=== PATIENT | male | born 1975 | race Caucasian/White ===

== ENCOUNTER 2023-01-26 15:47 | Emergency (ER) | payer BC, SELFPAY ==
[2023-01-26 15:54] VITALS: BP 157/96; PULSE 92; RESP 18; TEMP 36.8; O2SAT 97
--- NOTE | 2023-01-26 16:15 | ED.GENADULT ---
HPI - General Adult General Chief complaint: Allergic Reaction Stated complaint: poison hola Time Seen by Provider: 01/26/23 16:10 Source: patient, RN notes reviewed and old records reviewed Mode of arrival: ambulatory Limitations: no limitations History of Present Illness HPI narrative: 47 year old male who presents to [facility] care with complaints of poison rash to his arms, right side of his face for the past month. Patient reports that he has taken a Prednisone taper without relief of symptoms, wants a shot today of steroid. Patient states that he contacted [facility] after mowing grass, rash is itchy and irritating.Patient does have history of asthma denies any shortness of breath or any difficulty with swallowing. MD complaint: poison hola rash Onset (ago): month(s) (1) Severity scale (1-10): 8 Quality: other (itchy and irritating) Treatments prior to arrival: other (topical medication and took prednisone taper) Related Data Home Medications Medication Instructions Recorded Confirmed albuterol sulfate 90 mcg/actuation 2 puff inhalation Q4-6H PRN 01/26/23 01/26/23 aerosol inhaler Shortness Of Breath Or Wheezing fluticasone furoate 200 1 inh inhalation BID 01/26/23 01/26/23 mcg-vilanterol 25 mcg/dose inhalation powder (Breo Ellipta) olmesartan 40 mg-amlodipine 5 1 tablet PO DAILY 01/26/23 01/26/23 mg-hydrochlorothiazide 12.5 mg tablet omeprazole 40 mg capsule,delayed 40 mg PO DAILY 01/26/23 01/26/23 release prednisone 10 mg tablet mg 01/27/23 prednisone 10 mg tablet mg 01/27/23 Allergies Allergy/AdvReac Type Severity Reaction Status Date / Time No Known Allergies Allergy Verified 01/26/23 16:04 Review of Systems Review of Systems: CONSTITUTIONAL: Denies fever, chills, or sweats. CARDIOVASCULAR: Denies chest pain, palpitations, or edema. RESPIRATORY: Denies cough or dyspnea. SKIN: Reports red raised itchy rash to his right side of face and neck and to his arms MUSCULOSKELETAL: Denies joint pain or myalgia. NEUROLOGIC: Denies headache, numbness, or weakness. All systems reviewed & are unremarkable except as noted in HPI and below PMFSH Past Medical History Medical History (Updated 01/27/23 @ 21:53 by Sonal Damon NP) Asthma GERD (gastroesophageal reflux disease) Hypertension Surgical History Surgical History (Updated 01/27/23 @ 21:54 by Sonal Damon NP) History of tonsillectomy and adenoidectomy Social History Social History (Updated 01/27/23 @ 21:55 by Sonal Damon NP) Smoking status: Never smoker Alcohol intake: current Alcohol use details: social Substance use type: does not use Living arrangements: with family Gender identity (if verbalized by the patient): Male Comments At time of signature, agree with nursing past medical, surgical, social and family history. There is no relevant family history pertinent to the presenting complaint Exam Narrative: GENERAL: Well-appearing, well-nourished, and in no acute distress. HEAD: Normocephalic, atraumatic. EYES: PERRLA, conjunctivae clear, and EOMI. ENT: Mucous membranes moist. Oropharynx without edema, erythema or lesions. NECK: Supple. No lymphadenopathy CHEST: Clear to auscultation. No respiratory distress.no cough noted SAO2 97% on room air HEART: Regular rate and rhythm. SKIN: Warm, dry.? Patches of red raised rash to right side of face and neck and to arms is itchy and irritating. NEURO:? Alert and oriented x3. PSYCH: Normal mood and affect Course Course Emergency Course: Patient is aware of diagnosis, understands and agrees to treatment plan.? Anticipatory guidance given.? Patient agrees to follow-up as directed and is aware of reasons to seek care at the emergency department. Portions of this record may have been created with voice recognition software Level of Care: Express Care Visit Vital Signs Vital signs: Vital Signs Temperature 36.8 C
[2023-01-26] MEDS: methylPREDNISolone ACETATE 80 MG/ML VIAL IM (16:28)
== END 2023-01-26 16:45 | disposition home or self-care (01) ==
PROVIDERS: Emergency Provider Registered Nurse
DX: L23.7 Allergic contact dermatitis due to plants, except food (principal); J45.909 Unspecified asthma, uncomplicated; K21.9 Gastro-esophageal reflux disease without esophagitis; I10 Essential (primary) hypertension
CPT/HCPCS: 96372; 99213; G0463; J1040

== ENCOUNTER 2023-09-11 16:57 | Emergency (ER) | payer BC, SELFPAY ==
[2023-09-11 17:06] VITALS: BP 139/98; PULSE 111; RESP 20; TEMP 37.4; O2SAT 96
--- NOTE | 2023-09-11 18:17 | ED.SKABFB ---
HPI - Skin/Abscess/Foreign Bdy General Chief complaint: Skin/Abscess/Foreign Body Stated complaint: Left arm bite Time Seen by Provider: 09/11/23 18:01 Source: patient, RN notes reviewed and old records reviewed Mode of arrival: ambulatory Limitations: no limitations History of Present Illness HPI narrative: 48-year-old male to Express Care for complaint of rash to left shoulder has become increasingly, swollen and itchy. patient also endorsing a rash scattered across right upper extremity and mid upper back. Patient concerned for poison hola. Patient reports having a virtual medical appointment today and receiving a prescription for cephalexin. Patient states that his significant other wanted him to be evaluated in person. Patient denies chills, fever, nausea, pain, body aches, allergies, pertinent medical history. Patient hypertensive and tachycardic in triage. Respirations even and nonlabored an exam room. Patient able to speak in complete sentences without difficulty. Patient able to tolerate fluids by mouth. No acute distress. Related Data Home Medications Medication Instructions Recorded Confirmed albuterol sulfate 90 mcg/actuation 2 puff inhalation Q4-6H PRN 01/26/23 09/11/23 aerosol inhaler Shortness Of Breath Or Wheezing fluticasone furoate 200 1 inh inhalation BID 01/26/23 09/11/23 mcg-vilanterol 25 mcg/dose inhalation powder (Breo Ellipta) olmesartan 40 mg-amlodipine 5 1 tablet PO DAILY 01/26/23 09/11/23 mg-hydrochlorothiazide 12.5 mg tablet omeprazole 40 mg capsule,delayed 40 mg PO DAILY 01/26/23 09/11/23 release cephalexin 500 mg capsule 500 mg PO QID 09/11/23 09/11/23 Allergies Allergy/AdvReac Type Severity Reaction Status Date / Time No Known Allergies Allergy Verified 09/11/23 18:02 Review of Systems Review of Systems: All systems reviewed & are unremarkable except as noted in HPI and below Constitutional: Constitutional: Reports no additional constitutional complaints Eyes: Eyes: Reports no additional eye complaints ENT: Reports system reviewed and no additional complaints, except as documented Cardiovascular: Cardiovascular: Reports no additional cardiovascular complaints, Denies chest pain and Denies dyspnea Respiratory: Respiratory: Reports no additional respiratory complaints, Denies cough and Denies dyspnea Musculoskeletal: Musculoskeletal: Reports no additional musculoskeletal complaints Integumentary/Breasts: Skin/Breast: Reports as per HPI, Reports rash, Reports skin swelling ( Left shoulder) and Reports wounds ( left shoulder) Neurologic: Reports system reviewed and no additional complaints, except as documented Psychiatric: Psychiatric: Reports no additional psychiatric complaints PMFSH Past Medical History Medical History Asthma GERD (gastroesophageal reflux disease) Hypertension Surgical History Surgical History History of tonsillectomy and adenoidectomy Social History Social History Smoking status: Never smoker Alcohol intake: current Alcohol use details: social Substance use type: does not use Living arrangements: with family Gender identity (if verbalized by the patient): Male Comments At the time of my signature, I reviewed and agree with the nursing past medical, surgical, social, and family history. There is no relevant family history pertinent to the patient complaint. Exam Const: General: cooperative, healthy appearing, no acute distress, alert, uncomfortable and well nourished Nutritional Appearance: well nourished Orientation/consciousness: patient oriented x3 Limitations: no limitations HENMT: Head: normal to inspection Ears: external ears normal Face/Nose/Sinus: Normal external nose present, Normal nares present, normal facial exam, No e
[2023-09-11] MEDS: methylPREDNISolone SOD SUCC 125 MG VIAL IM (18:47)
== END 2023-09-11 19:10 | disposition home or self-care (01) ==
PROVIDERS: Emergency Provider Nurse Practitioner Family; PCP Internal Medicine
DX: L25.9 Unspecified contact dermatitis, unspecified cause (principal); J45.909 Unspecified asthma, uncomplicated; K21.9 Gastro-esophageal reflux disease without esophagitis; I10 Essential (primary) hypertension
CPT/HCPCS: 96372; 99213; G0463; J2919